=== PATIENT | female | born 1995 | race Two or more races ===

== ENCOUNTER 2019-12-01 20:03 | Emergency (ER) | payer MEDICAID, OTHER ==
[~2019-12-01] VITALS: Ht 167.6 cm; Wt 90.7 kg
[2019-12-01] MEDS ORDERED: HYDROmorphone HCL 2 MG/ML VL IV ONE (21:15)
[2019-12-01] MEDS ORDERED: ONDANSETRON HCL 4 MG/2 ML VIAL IV ONE (21:15)
[2019-12-01] MEDS: IOHEXOL 300 MG/ML 100ML BOTTLE IJ ONE ×2 (22:07→23:15)
[2019-12-01 22:22] LABS: Basophils # (auto) 0.1 10 ^3/uL (0-0.2); Eosinophils # (auto) 0.1 10 ^3/uL (0-0.8); Lymphocytes # (auto) 3.2 10 ^3/uL (0.4-5.4); Monocytes # (auto) 0.6 10 ^3/uL (0-1.3); Neutrophils # (auto) 10.2 10 ^3/uL (1.6-8.6); Nucleated Red Blood Cells % 0.1 %
[2019-12-01 22:23] LABS: Basophils % (auto) 0.4 % (0.0-2.0); Eosinophils % (auto) 0.5 % (0.0-7.0); Hematocrit 37.9 % (36.0-46.0); Hemoglobin 12.3 g/dL (12.2-16.2); Lymphocytes % (auto) 22.5 % (10.0-50.0); Mean Corpuscular Hemoglobin 26.7 pg (28.0-32.0); Mean Corpuscular Hgb Conc. 32.5 g/dL (32.0-36.0); Mean Corpuscular Volume 82.2 fL (80.0-100.0); Monocytes % (auto) 4.3 % (0.0-12.0); Neutrophils % (auto) 72.3 % (37.0-80.0); Platelet Count (auto) 427 10^3/uL (140-450); Red Blood Cells 4.62 10^6/uL (4.0-5.20); Red Cell Distribution Width 14.2 % (11.8-14.3)
[2019-12-01 22:35] LABS: INR 0.98 (0.9-1.15); Partial Thromboplastin Time 26.8 sec (23.64-32.05)
[2019-12-01 22:41] LABS: Albumin 3.4 g/dL (3.4-5.0); Calcium 8.4 mg/dL (8.5-10.1)
[2019-12-01 22:44] LABS: BUN/Creatinine Ratio 8.9; Bilirubin, Total 0.2 mg/dL (0.2-1.0); Total Protein 7.9 g/dL (6.4-8.2)
[2019-12-02] MEDS ORDERED: cefTRIAXone SOD 1,000 MG VL IM ONE (02:00)
[2019-12-02] MEDS ORDERED: ACETAMINOPHEN/CODEINE#3 (300/30mg) TAB PO ONE (02:00)
[2019-12-02] MEDS ORDERED: BACITRACIN TOP OINT 1 UD PKG TOP ONE (02:00)
[2019-12-02] MEDS ORDERED: ONDANSETRON ODT 4 MG TAB PO ONE (02:15)
[2019-12-02 03:39] VITALS: BP 132/80
== END 2019-12-02 03:41 | disposition home or self-care (01) ==
LOC: EDBD 20:03 → ER 20:03
DX: S63.501A Unspecified sprain of right wrist, initial encounter (principal); S30.1XXA Contusion of abdominal wall, initial encounter; S90.02XA Contusion of left ankle, initial encounter; S80.12XA Contusion of left lower leg, initial encounter; S60.811A Abrasion of right wrist, initial encounter; V43.52XA Car driver injured in collision with other type car in traffic accident, initial encounter; Y93.89 Activity, other specified; Y92.89 Other specified places as the place of occurrence of the external cause; Y99.8 Other external cause status
CPT/HCPCS: 29125; 36415; 71260; 73090; 73110; 73590; 73610; 74177; 80053; 85025; 85610; 85730; 96372; 96374; 96375; 99285; J0696; J1170; J2405; Q0162; Q9967